=== PATIENT | male | born 1975 | race Caucasian/White ===

== ENCOUNTER 2018-12-08 05:57 | Day surgery (SDC) ==
--- NOTE | 2018-12-06 10:55 | EKG Report ---
Test Performed on : 12/06/2018 10:01:30 AM Test Reason : pat Blood Pressure : / mmHG Vent. Rate : 090 BPM Atrial Rate : 090 BPM P-R Int : 146 ms QRS Dur : 096 ms QT Int : 342 ms P-R-T Axes : 068 098 036 degrees QTc Int : 418 ms Normal sinus rhythm. Rightward axis Incomplete right bundle branch block Borderline ECG No previous ECGs available Unconfirmed Result
[2018-12-06 11:22] LABS: HEMATOCRIT 40.6 % (42.0-52.0); HEMOGLOBIN 13.8 g/dL (14.0-18.0); MCH 32.9 PG (27-31); MCV 96.7 FL (81-99); MPV 9.5 FL (7.4-10.4); RBC 4.2 XMIL (4.7-6.1); RDW 12.8 % (11.5-14.5); WBC 7.15 X1000 (4.8-10.8)
[2018-12-06 11:36] LABS: AGAP 11; BUN 10 mg/dL (8-22); CHLORIDE 99 mmol/L (98-107); COSMO 277; CREATININE 0.8 mg/dL (0.7-1.2); ESTIMATED GFR > 60; GLUCOSE 203 mg/dL (70-104); POTASSIUM 4.2 mmol/L (3.5-5.1); SODIUM 136 mmol/L (136-145); TCO2 26 mmol/L (25-35)
[2018-12-08] MEDS ORDERED: PEPCID ONE (06:07)
[2018-12-08] MEDS ORDERED: KEFZOL 2 GM/D5W 2 GM/50 ML IVPB ONE (06:07)
[2018-12-08] MEDS ORDERED: REGLAN ONE (06:07)
[2018-12-08] MEDS ORDERED: LR 1,000 ML ONE (06:07)
[2018-12-08] MEDS ORDERED: FENTANYL ONE (06:30)
[2018-12-08] MEDS ORDERED: DIPRIVAN 1% ONE (06:30)
[2018-12-08] MEDS ORDERED: XYLOCAINE-MPF 2% ONE (06:32)
[2018-12-08] MEDS ORDERED: ZEMURON ONE (06:33)
[2018-12-08] MEDS ORDERED: EPHEDRINE ONE (07:29)
[2018-12-08] MEDS ORDERED: MORPHINE IV PRN (09:42)
[2018-12-08] MEDS ORDERED: ZOFRAN IV PRN (09:42)
--- NOTE | 2018-12-08 10:50 | OPERATIVE NOTE ---
PROCEDURE DATE: 12/08/2018 PREOPERATIVE DIAGNOSIS: Left Charcot midfoot neuroarthropathy. POSTOPERATIVE DIAGNOSIS: Left Charcot midfoot neuroarthropathy. OPERATION: 1. Left multiple midfoot joint fusions with osteotomy. 2. Left partial excision of the cuboid. SURGEON: Dr. Ángel Bullock ADMINISTRATIVE OFFICE SPECIALIST: GENOVEVA Pereira, who was an integral part of the case, helping with all aspects of the case, helping increase our OR efficiency greatly. ANESTHESIA: General with LMA. TOURNIQUET TIME: 130 minutes. IMPLANTS: [employer] beams x2. Those were solid not cannulated. DISPOSITION: To PACU, hemodynamically stable. INDICATION FOR PROCEDURE: Mr. Rubi is a 43-year-old male who I have been following in clinic for evaluation of his bilateral feet. He had a little ulcer on the right great toe. We got that healed up. He had a big Charcot deformity on the left side. We have followed him. He does not have an ulcer on that side. I discussed with him about nonoperative and operative intervention. He elected to go ahead and proceed with operative intervention to try to get the foot better plantigrade position. I went over with him the procedure, risks, benefits, potential complications. He expressed understanding and wished to proceed. DESCRIPTION OF PROCEDURE: Mr. Rubi was identified in the preoperative holding area. The left foot was marked as correct surgical site. He was then wheeled to the operating room, placed supine on the operating table. All bony prominences were well padded. He was induced under general anesthesia. LMA was placed. Tourniquet placed to the left thigh. Left lower extremity then prepped with chlorhexidine gluconate scrub and then ChloraPrep, and draped in normal sterile fashion. Surgical pause was performed. We identified the correct patient, correct side, and the correct procedure. Preop antibiotics were given. Esmarch was used to exsanguinate the left lower extremity and tourniquet was inflated to 300 mmHg. I started with a medial incision over the mid foot. Dissection was carried down. We elevated full-thickness soft tissue flaps both dorsally and plantarly. We exposed a lot of that plantar bone that was very prominent and exposed some of the talonavicular and navicular cuneiform and 1st TMT joints. I cleaned out the talonavicular and the first TMT joints by using the Hintermann distractor and then using a curette, osteotomes and a rongeur we denuded all the cartilage and got back to nice raw bleeding bone edges. I then drilled both sides to stimulate a lot of good bony healing at all those sites. Then under fluoroscopic imaging, got my alignment for my osteotomy and we did a biplanar osteotomy taking a wedge of bone plantarly and a wedge of bone medially to close him down. I was then able to take a sagittal saw and protecting our full-thickness flaps with Glass and even Homans I was able to make cuts and removed that bone. We actually used that bone of the good part of the bone as bone graft at each of our fusion sites. We then were able to close down our osteotomy and that restored his more normal anatomy. I then used a sougou augment which is a platelet derived growth factor. I used it at all the fusion sites and then packed the fusion sites also with some of the bone graft. I then made an incision over the dorsal aspect of the great toe. Dissection was carried down through the capsule. I then got my position for my guidewire and ran it up the toe and into the talus. We actually restored Meary's angle. I was able to get that talus and navicular up. We were supposed to be to match the first metatarsal. I then did some temporary pins. I then drilled that and then put a solid bolt solid beam screw and that actually held everything together very well and had good compression at our fusion sites. I made a dorsal incision over the 2nd MTP joint. Dissection was carried down through the capsule to reveal the metatarsal head. I then got my guidewire in the 2nd metatarsal all the way up into the talus and then put a solid screw it as well. I felt our overall position was really good. He had a little bit of an arch now at this point and there was just some bony prominence from the cuboid. I ended up using a sagittal saw and performed a partial excision of the cuboid and excised that bone and then I used a power rasp to really smooth it down the rest of the way and that finished our partial excision tarsal and that also helped take away any bony prominence that was on the plantar aspect. It was actually very smooth and then pushing from the bottom of his foot. There was no more rockerbottom deformity. The overall position of the foot looked really good as well. We then repaired the big soft tissue sleeve on the medial side using 0 Vicryl. We did not have to take down the tibialis anterior tendon. We were able to work around it so we did not have to repair it. We repaired that sleeve. We repaired the capsules from the 1st and 2nd MTP joints. We then closed everything in a layered fashion, 2 Vicryl for the subcutaneous and nylon on the skin. Adaptic, 4x4s, ABD, soft roll, posterior splint was applied. Tourniquet was let down at 130 minutes which was during our closing and he had good capillary refill return to the toes. He was then awakened from general anesthesia, moved to his own bed and taken to PACU in stable condition. Postoperatively, he will be nonweightbearing left lower extremity. I will see him in a week in clinic. cc: Ángel Bullock MD
[2018-12-08] MEDS: OXY IR PO PRN ×2 (13:18→18:03)
[2018-12-08] MEDS: KEFZOL 1 GM/D5W 1 GM/50 ML IVPB IV SCH ×2 (14:57→22:55)
[2018-12-08] MEDS ORDERED: TYLENOL PO ONE (20:20)
[2018-12-08] MEDS ORDERED: PERIDEX MT SCH (21:00)
[2018-12-09] MEDS: OXY IR PO PRN ×2 (00:51→06:14)
[2018-12-09] MEDS: KEFZOL 1 GM/D5W 1 GM/50 ML IVPB IV SCH (05:49)
[2018-12-09] MEDS ORDERED: LOVENOX SUBQ SCH (06:00)
[2018-12-09 08:05] VITALS: BP 138/84
--- NOTE | 2018-12-10 06:34 | DISCHARGE SUMMARY ---
ADMISSION DATE: 12/08/2018 DISCHARGE DATE: 12/09/2018 ADMITTING DIAGNOSES: 1. Left Charcot midfoot neuropathy. 2. Diabetes mellitus type 2 with peripheral neuropathy. DISCHARGE DIAGNOSES: 1. Left Charcot midfoot neuropathy. 2. Diabetes mellitus type 2 with peripheral neuropathy. PROCEDURES: On 12/08/2018, Dr. Bullock performed left multiple midfoot joint fusions with osteotomy and left partial excision of the cuboid. HOSPITAL COURSE: Mr. Hdez is a 43-year-old male who has been seeing Dr. Bullock in clinic for his left Charcot neuropathy. Dr. Bullock had been treating him with total contact casting for several weeks. Once he was out of the acute phase, it was decided that operative intervention would be necessary to prevent wounds or further deformity. Dr. Bullock discussed the procedure risks and benefits in great detail with the patient. He understood and wished to proceed. On 12/08/2018, Dr. Bullock took the patient back to the operating room. Once satisfactory anesthesia was obtained, the procedure was started. The patient tolerated the procedure well was transferred to the recovery room. After satisfactory recovery, the patient was transferred to [address] [place] [address]. The patient has had an uneventful postoperative course. His sugars have been running greater than 200. We have discussed some diabetic education and the necessity for that for his recovery phase. His discharge labs: White count 7.15, hemoglobin and hematocrit are 13.8 and 40.6, platelet count 224,000. His BUN and creatinine are 10 and 0.8. His discharge vital signs: His temperature is 100.4 degrees, pulse is 108, blood pressure is 147/80, respirations are 22, and he is 98% on room air. He has not been very ambulatory. We are going to get him up to the bedside chair for breakfast this morning. If he tolerates mobilizing well without putting any weight on this left side, we will get him discharged to home today. DISCHARGE MEDICATIONS: 1. Aspirin 325 mg b.i.d. x60 days. 2. Percocet 5 mg 1 to 2 tabs every 4 hours as needed for pain. 3. Synthroid 25 mcg 2 tabs p.o. daily. 4. Metformin 1000 mg p.o. b.i.d. 5. Vitamin D 30483 units p.o. Wednesday and . 6. Lipitor 40 mg p.o. daily. 7. Glipizide 10 mg p.o. b.i.d. DISCHARGE DISPOSITION: Mr. Rubi is going to be discharged home to self-care. He does have a good supportive family. I have discussed with him the diabetes education as well as smoking cessation and the importance of that for this healing process. He is going to be on aspirin 325 mg twice a day for DVT prophylaxis. He is going to be on Percocet as needed for pain control. I did discuss with him the signs and symptoms of postoperative infection and when to call the office. He will be nonweightbearing to this left lower extremity. That is strict nonweightbearing. He is aware of this. His daughter is at the bedside. All questions were answered. Should he have any questions or concerns, he is welcome to call the office. He is going to follow up in 1 week. We will take down the splint and go into a total contact cast. Dictated by GENOVEVA Pereira for Ángel Bullock MD cc: GENOVEVA Pereira MD [facility]
== END 2018-12-09 08:44 | disposition home or self-care (01) ==
LOC: 4N 05:57 → OR 05:57
PROVIDERS: ATTEND Orthopaedic Surgery
CPT/HCPCS: 76000; 80048; 82948; 85027; 93005; 93010; 94761; 94799; A9270; J0690; J1650; J2270; J3010; J7120; XXXXX